=== PATIENT | female | born 1940 | race Two or more races ===

== ENCOUNTER 2019-06-04 10:40 | Inpatient (IN) | payer OTHER ==
[~2019-06-04] VITALS: Ht 149.9 cm; Wt 46.7 kg
--- NOTE | 2019-06-04 10:57 | NUR ---
PATIENT BIB C/O ASHTMA ATTACK FOR 3 DAYS. PATIENT A/O X 3. NO ACUTE DISTRESS. NO CHANGES IN LOC NOTED. WILL CONTINUE TO MONITOR ACCORDINGLY
[2019-06-04] MEDS ORDERED: IPRATROPIUM NEB FS 0.5 MG/2.5 ML AMPUL.NEB ONE (11:25)
[2019-06-04] MEDS ORDERED: ALBUTEROL FS 2.5 MG/3 ML VIAL.NEB ONE (11:25)
[2019-06-04] MEDS ORDERED: methylPREDNISolone SOD SUCC 125 MG/2ML VIAL ONE (11:26)
[2019-06-04] MEDS ORDERED: IPRATROPIUM NEB FS 0.5 MG/2.5 ML AMPUL.NEB NEB ONE (11:30)
[2019-06-04] MEDS ORDERED: ALBUTEROL FS 2.5 MG/3 ML VIAL.NEB NEB ONE (11:30)
[2019-06-04] MEDS ORDERED: methylPREDNISolone SOD SUCC 125 MG/2ML VIAL IV ONE (11:30)
[2019-06-04 11:35] LABS: BASOPHILS # (AUTO) 0.1 /CMM (0.0-0.2); BASOPHILS % (AUTO) 0.6 % (0.0-2.0); EOSINOPHILS % (AUTO) 5.4 % (0.0-6.0); HEMATOCRIT 45 % (33-45); HEMOGLOBIN 14.6 g/dL (11.5-14.8); LYMPHOCYTES # (AUTO) 1.7 /CMM (0.8-4.8); LYMPHOCYTES % (AUTO) 16.7 % (20.0-44.0); MEAN CORPUSCULAR HGB CONC 33 g/dl (31.0-36.0); MEAN CORPUSCULAR VOLUME 93 fL (82-100); MONOCYTES % (AUTO) 10.4 % (2.0-12.0); NEUTROPHILS # (AUTO) 6.6 /CMM (1.8-8.9); NEUTROPHILS % (AUTO) 66.9 % (43.0-81.0); PLATELET COUNT (AUTO) 384 /CMM (150-450); RED BLOOD CELL COUNT(AUTO) 4.82 MIL/uL (4.0-5.2); WHITE BLOOD COUNT (AUTO) 9.9 K/uL (4.3-11.0)
[2019-06-04] MEDS ORDERED: LOSA50TA39 PO (11:37)
[2019-06-04] MEDS ORDERED: HYDR-500 PO (11:37)
[2019-06-04] MEDS ORDERED: ALBU18HF2 INH (11:37)
[2019-06-04] MEDS ORDERED: ALBU2.5V38 INH (11:37)
[2019-06-04 11:42] LABS: CALCIUM, SERUM 9.4 mg/dL (8.5-10.1); CARBON DIOXIDE 27 mmol/L (21-32); CHLORIDE 102 mmol/L (98-107); CREATININE 0.5 mg/dL (0.6-1.3); GLUCOSE 97 mg/dL (74-106); SODIUM SERUM 138 mmol/L (136-145); UREA NITROGEN, BLOOD 8 mg/dL (7-18)
[2019-06-04 11:55] LABS: ALANINE AMINOTRANSFERASE 21 U/L (12-78); ALBUMIN 3.6 g/dL (3.4-5.0); ALKALINE PHOSPHATASE 101 U/L (46-116); ASPARTATE AMINOTRANSFERASE 17 U/L (15-37); B-TYPE NATRIURETIC PEPTIDE 78 PG/ML (0-125); BILIRUBIN,DIRECT 0.2 mg/dL (0.0-0.2); TOTAL PROTEIN, SERUM 7.7 g/dL (6.4-8.2)
--- NOTE | 2019-06-04 12:00 | NUR ---
CALLED NURSING SUP FOR M/S BED.
[2019-06-04] MEDS ORDERED: Z GUARD REMEDY 2 OZ OINT TP PRN (12:30)
[2019-06-04] MEDS ORDERED: MAGNESIUM HYDROXIDE 30 ML UDC PO PRN (12:30)
--- NOTE | 2019-06-04 12:43 | NUR ---
NURSING SUP GAVE [phone].
--- NOTE | 2019-06-04 12:51 | NUR ---
REPORT GIVEN TO CORI BELTRAN FOR CHRISTIANO
--- NOTE | 2019-06-04 12:51 | NUR ---
RECEIVED TELEPHONE REPORT FROM ER
--- NOTE | 2019-06-04 12:56 | NUR ---
RECEIVED PT FROM ER VIA e-voloRNEY. PT AWAKE IN BED, ALERT AND ORIENTED X 4, ON ROOM AIR, SATURATING WELL, RESPIRATIONS EVEN AND UNLABORED, NO SIGNS OF RESPIRATORY DISTRESS NOTED. PT REPORTS A HEADACHE AND BACK PAIN WHEN COUGHING. COUGH IS NON PRODUCTIVE. IV SITE ON LEFT AC G18 IS PATENT, INTACT, WITH HEP LOCK IN PLACE. HEAD TO TOE ASSESSMENT COMPLETED. WHEEZING AUSCULTATED IN BILATERAL LUNGS. SCAR NOTED ON ABDOMEN, REDNESS NOTED ON SACRAL AREA. PHOTOS TAKEN, PLACED INTO CHART, WOUND CONSULT ORDERED, WOUND CARE PLAN INITIATED. BED IN LOW POSITION, LOCKED, CALL LIGHT WITHIN REACH. PT'S CURRENT WEIGHT: 103 LBS ON ADMISSION ON BED SCALE. ALL BELONGINGS AND VALUABLE ACCOUNTED FOR.
--- NOTE | 2019-06-04 12:56 | NUR ---
PATIENT TRANSFERRED TO UNIT VIA GURNEY. PATIENT BREATHING UNLABORED. NO ACUTE DISTRESS. NO CHANGES IN LOC NOTED.
[2019-06-04 13:00] VITALS: BP 128/70
[2019-06-04] MEDS: methylPREDNISolone SOD SUCC 40 MG/ML VIAL IV SCH ×2 (13:26→21:18)
[2019-06-04] MEDS: ALBUTEROL FS 2.5 MG/0.5 ML VIAL.NEB NEB PRN ×2 (15:23→21:33)
[2019-06-04] MEDS: IPRATROPIUM NEB FS 0.5 MG/2.5 ML AMPUL.NEB NEB PRN ×2 (15:23→21:33)
[2019-06-04] MEDS: ONDANSETRON HCL/PF 4 MG/2 ML VIAL IVP PRN ×2 (15:48→16:27)
[2019-06-04] MEDS: ALPRAZOLAM 0.5 MG TABLET PO PRN (15:50)
[2019-06-04 16:00] VITALS: BP 145/78
--- NOTE | 2019-06-04 18:24 | NUR ---
MS RN CLOSING NOTE PT AWAKE IN BED, ALERT AND ORIENTED X 4, ON ROOM AIR, SATURATING WELL, RESPIRATIONS EVEN AND UNLABORED, NO SIGNS OF RESPIRATORY DISTRESS NOTED. IV SITE ON LEFT AC G18 IS PATENT, INTACT, WITH HEP LOCK IN PLACE. PROVIDED SAFETY AND COMFORT TO PT THROUGHOUT SHIFT, ALL DUE MEDS GIVEN, BED IN LOW POSITION, LOCKED, CALL LIGHT WITHIN REACH. BY BEDSIDE. WILL ENDORSE TO NOC SHIFT NURSE.
--- NOTE | 2019-06-04 19:30 | NUR ---
STRUCTURAL ENGINEERING DRAFTING OFFICER OPENING NOTES RECEIVED PATIENT FROM MORNING SHIFT, ALERT AND ORIENTED X 4. AMBULATORY, VERBALLY RESPONSIVE [place] SPEAKING AND ABLE TO FOLLOW DIRECTIONS. BREATHING REGULAR AND UNLABORED ON ROOM AIR. LEFT AC G18 IV LINE INTACT AND PATENT FLUSHING WELL WITH NO BLEEDING OR S/S OF INFECTION/INFILTRATION NOTED. NO COMPLAINTS OF PAIN/DISCOMFORT REPORTED OF THE TIME. BODY ASSESSMENT DONE, SKIN REMAINED INTACT WITH SACRAL REDNESS. ENCOURAGED TO CHANGE POSITION FROM TIME TO TIME. BED LOW AND LOCKED ON SEMI FOWLERS POSITION. CALL LIGHT IN REACH. WILL CONTINUE TO MONITOR.
[2019-06-04 20:00] VITALS: BP 147/69
[2019-06-04 22:00] VITALS: BP 147/69
[2019-06-04] MEDS: HYDROCODONE/APAP 5/325MG 1 EACH TABLET PO PRN (23:50)
--- NOTE | 2019-06-05 | NUR ---
SPECIAL EDUCATION AIDE NOTES COMPLAINED OF 7/10 GENERALIZED PAIN, NORCO 5/325 GIVEN BY MOUTH. NON-PHARMACOLOGICAL INTERVENTIONS PROVIDED. WILL CONTINUE TO MONITOR.
[2019-06-05] MEDS: TEMAZEPAM 15 MG CAPSULE PO PRN (01:05)
--- NOTE | 2019-06-05 01:10 | NUR ---
PHYSICIAN PEDIATRICIAN NOTES COMPLAINED OF INABILITY TO STAY ASLEEP, RESTORIL 15MG GIVEN BY MOUTH. NON-PHARMACOLOGICAL INTERVENTIONS PROVIDED. WILL CONTINUE TO MONITOR.
[2019-06-05] MEDS: ALBUTEROL FS 2.5 MG/0.5 ML VIAL.NEB NEB PRN ×3 (01:33→11:36)
[2019-06-05] MEDS: IPRATROPIUM NEB FS 0.5 MG/2.5 ML AMPUL.NEB NEB PRN ×3 (01:33→11:36)
[2019-06-05] MEDS: methylPREDNISolone SOD SUCC 40 MG/ML VIAL IV SCH ×3 (04:18→21:02)
--- NOTE | 2019-06-05 06:20 | NUR ---
ICT PROGRAMMER CLOSING NOTES PATIENT IN BED, ALERT AND ORIENTED X 4. VERBALLY RESPONSIVE AND ABLE TO FOLLOW DIRECTIONS. BREATHING REGULAR AND UNLABORED ON ROOM AIR WITH EPISODES OF PRODUCTIVE COUGHING. LEFT AC G18 IV LINE INTACT AND FLUSHING WELL. MAINTAINED ON CARDIAC MONITORING WITH NSR AT 78bpm. NO COMPLAINTS OF PAIN/DISCOMFORT REPORTED OF THE TIME. BED LOW AND LOCKED ON SEMI FOWLERS POSITION. CALL LIGHT IN REACH. WILL ENDORSE TO MORNING SHIFT FOR CHRISTIANO.
[2019-06-05 07:14] LABS: BASOPHILS % (AUTO) 0.1 % (0.0-2.0); HEMATOCRIT 43 % (33-45); HEMOGLOBIN 14.7 g/dL (11.5-14.8); LYMPHOCYTES # (AUTO) 1.2 /CMM (0.8-4.8); LYMPHOCYTES % (AUTO) 11.4 % (20.0-44.0); MEAN CORPUSCULAR HGB CONC 34 g/dl (31.0-36.0); MEAN CORPUSCULAR VOLUME 93 fL (82-100); MONOCYTES # (AUTO) 0.3 /CMM (0.1-1.30); MONOCYTES % (AUTO) 2.7 % (2.0-12.0); NEUTROPHILS % (AUTO) 85.8 % (43.0-81.0); PLATELET COUNT (AUTO) 399 /CMM (150-450); RED BLOOD CELL COUNT(AUTO) 4.65 MIL/uL (4.0-5.2); WHITE BLOOD COUNT (AUTO) 10.5 K/uL (4.3-11.0)
[2019-06-05 07:29] LABS: CALCIUM, SERUM 9.5 mg/dL (8.5-10.1); CREATININE 0.6 mg/dL (0.6-1.3); MAGNESIUM 2.1 mg/dL (1.8-2.4); PHOSPHORUS 4.7 mg/dL (2.5-4.9); POTASSIUM 4.4 mmol/L (3.5-5.1)
--- NOTE | 2019-06-05 07:55 | NUR ---
GROUP CONTRACT ANALYST OPENING NOTES PT A/O X4, ALBANIAN AND TURKISH SPEAKING. ON BEDSIDE. NO COMPLAIN OF SOB, WHEEZING AND CRACKLES VIA AUSCULTATION ON LUNGS BILATERALLY, ON O2 AT 2LPM VIA NASAL CANNULA, HOB ELEVATED FOR BETTER BREATHING. DENIES PAIN AND DISCOMFORT. SKIN WARM TO TOUCH AND DRY. ABD SOFT AND NON DISTENDED WITH ACTIVE BOWEL SOUNDS, WITH BRP NEEDS ASSISTANCE. IV SITE AT LEFT AC GAUGE 18 PATENT IN FLUSHING. TELE MONITOR SHOWS NSR 93.ALL CONCERNS ADDRESSED. TX NEAR NURSES STATION. WILL CONTINUE TO MONITOR CARE.
[2019-06-05 08:00] VITALS: BP 147/72
[2019-06-05 08:24] LABS: ABG BASE EXCESS 3.3 mmol/L; ABG OXYGEN SATURATION 94.7 % (92.0-98.5); ABG PH 7.432 (7.350-7.450); ABG PO2 81.1 mmHg (75.0-100.0); AaDO2 67.8 mmHg; COHb 0.7 % (0.5-1.5); MetHb 0.3 % (0.0-1.5); O2Hb 93.8 % (94.0-97.0); SITE, ABG Right Radial; VENT MODE, BG N/C 2LPM
--- NOTE | 2019-06-05 09:51 | NUR ---
RN NOTES PT SEEN BY [facility]
[2019-06-05] MEDS: ALPRAZOLAM 0.5 MG TABLET PO PRN (09:52)
[2019-06-05] MEDS: LOSARTAN POTASSIUM 50 MG TABLET PO SCH (09:52)
[2019-06-05] MEDS: ALBUTEROL FS 2.5 MG/0.5 ML VIAL.NEB NEB SCH ×4 (12:00→23:21)
[2019-06-05] MEDS: IPRATROPIUM NEB FS 0.5 MG/2.5 ML AMPUL.NEB NEB SCH ×4 (12:00→23:21)
--- NOTE | 2019-06-05 13:15 | NUR ---
RN NOTES PT SEEN BY DIETARY, TO START WITH ENSURE ENLIVE FOR NOURISHMENT BID. PT AWARE AND AGREED.
[2019-06-05 16:00] VITALS: BP 131/69
--- NOTE | 2019-06-05 17:44 | NUR ---
RN NOTES PT WENT TO RADIOLOGY FOR SINUS XRAY VIA WHEELCHAIR WITH TEST DEPARTMENT HELPER AND
[2019-06-05] MEDS: ENSURE ENLIVE 237 ML LIQUID (VANILLA) PO SCH (17:50)
--- NOTE | 2019-06-05 18:05 | NUR ---
M/S RN NOTES PT CAME BACK FROM XRAY
--- NOTE | 2019-06-05 18:34 | NUR ---
M/S RN CLOSING NOTES PT A/O X4, RESPONSIVE TO ALL STIMULI. RESPIRATION EVEN AND NON LABORED WITH NO ACUTE RESPIRATORY DISTRESS, WHEEZING STILL PRESENT, ON NEBULIZER Q4. HOB ON SUPINE POSITION, O2 NEEDED ONLY. ABDOMEN SOFT AND NON DISTENDED WITH ACTIVE BOWEL SOUNDS, NO BM TODAY, CONTINENT B&B. SKIN WARM TO TOUCH AND DRY, NO NEW OPEN SKIN BREAKDOWN. IV SITE AT LEFT AC GAUGE 18 PATENT IN FLUSHING. DENIES PAIN AND DISCOMFORT. ALL CARE ATTENDED. CALL LIGHT WITHIN REACH. ON BEDSIDE. ENDORSE PT CARE TO NEXT SHIFT.
[2019-06-05 19:30] VITALS: BP 139/65
--- NOTE | 2019-06-05 19:30 | NUR ---
MS RN NOTES PATIENT IN BED AWAKE, ALERT AND ORIENTED X 4. AT BEDSIDE. BREATHING EVEN AND UNLABORED RESPIRATIONS. DENIES ACUTE PAIN, NO ACUTE RESPIRATORY DISTRESS. WHEEZING PRESENT ON AUSCULTATION. IV ON LAC #18G SALINE LOCK. CLEAN DRY AND INTACT. NO REDNESS, NO SIGNS OF INFILTRATION. SAFETY PRECAUTION IN PLACE. BED IN LOWEST POSITION LOCKED, AND CALL LIGHT KEPT WITHIN REACH. WILL CONTINUE TO MONITOR.
[2019-06-05 20:00] VITALS: BP 139/65
[2019-06-06] MEDS: TEMAZEPAM 15 MG CAPSULE PO PRN (00:29)
--- NOTE | 2019-06-06 00:30 | NUR ---
MS RN NOTES PATIENT REQUESTED SLEEP MEDICATION. GIVEN RESTORIL PRN ON 29. WILL CONTINUE TO MONITOR.
[2019-06-06] MEDS: ALBUTEROL FS 2.5 MG/0.5 ML VIAL.NEB NEB SCH ×6 (03:30→23:28)
[2019-06-06] MEDS: IPRATROPIUM NEB FS 0.5 MG/2.5 ML AMPUL.NEB NEB SCH ×6 (03:30→23:28)
[2019-06-06] MEDS: methylPREDNISolone SOD SUCC 40 MG/ML VIAL IV SCH ×3 (04:31→20:47)
--- NOTE | 2019-06-06 06:31 | NUR ---
MS RN NOTES PATIENT ASLEEP IN BED, ALERT AND ORIENTED X 4. AT BEDSIDE. BREATHING EVEN AND UNLABORED RESPIRATIONS. DENIES ACUTE PAIN, NO ACUTE RESPIRATORY DISTRESS. WHEEZING PRESENT ON AUSCULTATION. IV RIGHT FOREARM #22G SALINE LOCK. CLEAN DRY AND INTACT. NO REDNESS, NO SIGNS OF INFILTRATION. ALL DUE MEDICATION GIVEN. SAFETY PRECAUTION IN PLACE. BED IN LOWEST POSITION LOCKED, AND CALL LIGHT KEPT WITHIN REACH. WILL ENDORSE TO ONCOMING NURSE.
[2019-06-06 08:00] VITALS: BP 144/95
[2019-06-06] MEDS: LOSARTAN POTASSIUM 50 MG TABLET PO SCH (08:52)
[2019-06-06] MEDS: ENSURE ENLIVE 237 ML LIQUID (VANILLA) PO SCH ×2 (08:52→16:05)
--- NOTE | 2019-06-06 09:06 | NUR ---
alert, oriented, and appropriate, significant other at bedside, still wheezy , on 2liters nc, sat 94%. No c/o of sob, nor dyspnea at this moment
[2019-06-06] MEDS: ACETYLCYSTEINE 10% SOLN 400 MG/4 ML VIAL NEB SCH ×3 (12:01→23:28)
[2019-06-06 16:00] VITALS: BP 148/73
--- NOTE | 2019-06-06 17:32 | NUR ---
still congested, non-productive cough noted, in no respiratory distress. influenza A and B collected.
[2019-06-06] MEDS: ACETAMINOPHEN 325 MG TABLET PO PRN (18:30)
[2019-06-06] MEDS: ALPRAZOLAM 0.5 MG TABLET PO PRN (18:36)
--- NOTE | 2019-06-06 18:45 | NUR ---
claimed " i am so nervous, asking for xanax , 0.5mg po given.
--- NOTE | 2019-06-06 19:05 | NUR ---
RN MS OPENING NOTES RECEIVED PATIENT IN BED AWAKE ALERT AND ORIENTED X4, RESPIRATIONS EVEN AND UNLABORED WITH EQUAL RISE AND FALL OF CHEST NOTED WITH NON PRODUCTIVE COUGH AT THIS TIME,AT THIS TIME DENIES ANY PAIN OR DISCOMFORT AT THIS TIME PER PT WILL ASK FOR PAIN MED WHEN NEEDED, ON 2 L VIA NC TOLERATING WELL, IV SITE TO RIGHT FA #22 SL INTACT AND PATENT, NO REDNESS, NO INFILTRATION PRESENT, ORIENTED TO STAFF AND CALL LIGHT AND KEPT WITHIN REACH, SAFETY PRECAUTIONS RENDERED, LOW BED AND LOCKED,BED ALARM FOR SAFETY ALL NEEDS ATTENDED AT THIS TIME, FLUIDS OFFERED WILL CONTINUE TO MONITOR AND ATTEND TO NEEDS.
--- NOTE | 2019-06-06 19:53 | NUR ---
rn ms notes patient refused friday reassessment of skin and photos states " i dont have anything " educated regarding benefit of skin assessment states "no common no".
[2019-06-06 19:59] VITALS: BP 138/55
[2019-06-06 20:00] VITALS: BP 135/55
[2019-06-07] MEDS: TEMAZEPAM 15 MG CAPSULE PO PRN (02:00)
--- NOTE | 2019-06-07 02:00 | NUR ---
RN MS NOTES PATIENT REQUESTED FOR SLEEP MEDICATION RESTORIL PRN RESTORIL GIVEN ORDERED, WILL CONTINUE TO MONITOR FOR EFFECTIVENESS
[2019-06-07] MEDS: ALBUTEROL FS 2.5 MG/0.5 ML VIAL.NEB NEB SCH ×7 (03:30→23:50)
[2019-06-07] MEDS: IPRATROPIUM NEB FS 0.5 MG/2.5 ML AMPUL.NEB NEB SCH ×7 (03:30→23:50)
[2019-06-07] MEDS: methylPREDNISolone SOD SUCC 40 MG/ML VIAL IV SCH ×3 (04:33→20:49)
--- NOTE | 2019-06-07 05:02 | NUR ---
RN MS NOTES PATIENT REQUESTED BREATHING TREATMENT SCHEDULED FOR 0330 AM AT THIS TIME, PATIENT WAS A SLEEP EARLIER AND DID NOT WANT TO BE WOKEN UP.
--- NOTE | 2019-06-07 06:27 | NUR ---
RN MS CLOSING NOTES PATIENT IN BED SLEEPING BUT EASILY AROUSABLE , 0500 AM BREATHING TREATMENT WAS EFFECTIVE, HAD EPISODE OF COUGH AND FEELING SOB SP02 WNL 95% ON 2 L VIA NC, ALERT AND ORIENTED X4, RESPIRATIONS EVEN AND UNLABORED WITH EQUAL RISE AND FALL OF CHEST AT THIS TIME,AT THIS TIME DENIES ANY PAIN OR DISCOMFORT, IV SITE TO RIGHT FA #22 SL INTACT AND PATENT, NO REDNESS, NO INFILTRATION PRESENT, CALL LIGHT KEPT WITHIN REACH, SAFETY PRECAUTIONS RENDERED, LOW BED AND LOCKED,BED, ALL DUE MEDICATIONS GIVEN ORDERED NO ADVERSE REACTIONS PRESENT, SLEPT WELL AFTER RESTORIL ADMINISTRATION, ALL NEEDS ATTENDED AT THIS TIME, FLUIDS OFFERED WILL CONTINUE TO MONITOR AND ATTEND TO NEEDS AND ENDORSE TO NEXT SHIFT AT THIS TIME REMAINS COMFORTABLE.
[2019-06-07] MEDS: ACETYLCYSTEINE 10% SOLN 400 MG/4 ML VIAL NEB SCH ×3 (07:39→23:50)
--- NOTE | 2019-06-07 07:44 | NUR ---
MS RN OPENING NOTES Received Patient awake and resting in bed. A/O x 4. Patient in stable condition with no acute distress. Breathing even and unlabored on 2LPM via NC. Denies pain. 22g PIV on RFA clean, intact, patent and flushing well. Safety precautions in place. Bed locked and set to lowest position with side rails x 2 up. at bedside. All needs rendered at this time. Call light within reach. Will continue to monitor.
[2019-06-07 08:00] VITALS: BP 153/88
[2019-06-07] MEDS: ENSURE ENLIVE 237 ML LIQUID (VANILLA) PO SCH ×2 (08:22→16:56)
[2019-06-07] MEDS: LOSARTAN POTASSIUM 50 MG TABLET PO SCH (08:23)
[2019-06-07] MEDS: ALPRAZOLAM 0.5 MG TABLET PO PRN (14:27)
[2019-06-07 16:00] VITALS: BP 153/84
--- NOTE | 2019-06-07 18:49 | NUR ---
MS RN CLOSING NOTES Patient awake and resting in bed. A/O x 4. Patient in stable condition with no acute distress. Breathing even and unlabored on room air with no respiratory distress. Denies pain. 22g PIV on RFA clean, intact, patent and flushing well. Safety precautions in place. Bed locked and set to lowest position with side rails x 2 up. at bedside. All needs rendered at this time. Call light within reach. Will endorse plan of care to oncoming shift.
[2019-06-07 20:00] VITALS: BP_SYST 153; BP_SYST 162; BP_DIAS 76; BP_DIAS 91
--- NOTE | 2019-06-07 20:30 | NUR ---
rn ms notes patient complaint ensure makes her go to the bathroom x2 times and have stomach cramps and aches, requesting for imodium. dr moses made aware, new order for imodium noted and carried out.
[2019-06-07] MEDS ORDERED: LOPERAMIDE HCL (2 MG CAP) 2 MG CAPSULE PO PRN (21:00)
[2019-06-07 21:24] VITALS: BP 163/76
[2019-06-08] MEDS: TEMAZEPAM 15 MG CAPSULE PO PRN (01:09)
--- NOTE | 2019-06-08 01:09 | NUR ---
rn ms notes patient requested for sleep aide, restoril prn given as ordered, will continue to monitor for effectiveness.
[2019-06-08] MEDS: IPRATROPIUM NEB FS 0.5 MG/2.5 ML AMPUL.NEB NEB SCH ×6 (03:30→23:02)
[2019-06-08] MEDS: ALBUTEROL FS 2.5 MG/0.5 ML VIAL.NEB NEB SCH ×6 (03:30→23:02)
[2019-06-08] MEDS: methylPREDNISolone SOD SUCC 40 MG/ML VIAL IV SCH ×3 (05:00→20:46)
[2019-06-08 08:00] VITALS: BP 185/84
--- NOTE | 2019-06-08 08:20 | NUR ---
ms rn received on bed, awake,alert,oriented x 4, not in any form of distress, respirations even and unlabored,no sob noted, lung have wheezes bilaterally, denies pain at this time,all needs attended.
[2019-06-08] MEDS: ACETYLCYSTEINE 10% SOLN 400 MG/4 ML VIAL NEB SCH ×3 (08:31→23:03)
--- NOTE | 2019-06-08 08:50 | NUR ---
ms rn was seen by dr. regino dumas/ orders made and carried out.
[2019-06-08] MEDS: ENSURE ENLIVE 237 ML LIQUID (VANILLA) PO SCH ×2 (09:00→17:00)
--- NOTE | 2019-06-08 09:30 | NUR ---
ms roberts breakfast served,due meds given,tolerated well.
[2019-06-08] MEDS: BENZONATATE 100 MG CAPSULE PO PRN ×2 (09:54→15:28)
[2019-06-08] MEDS: LOSARTAN POTASSIUM 50 MG TABLET PO SCH (09:55)
--- NOTE | 2019-06-08 14:00 | NUR ---
ms rn patient complain of pain in her iv site, new iv heplock inserted at left forearm.right iv heplock removed.
[2019-06-08] MEDS: ALPRAZOLAM 0.5 MG TABLET PO PRN (15:04)
[2019-06-08] MEDS: ACETAMINOPHEN 325 MG TABLET PO PRN (15:07)
[2019-06-08 16:03] VITALS: BP 157/82
--- NOTE | 2019-06-08 16:45 | NUR ---
ms rn on bed, no distress noted.
--- NOTE | 2019-06-08 19:39 | NUR ---
MS/RN OPENING NOTES RECEIVED PATIENT IN BED, AWAKE, ABLE TO VERBALIZE NEEDS, PATIENT REPORTED THAT SHE FEELS HOT AND WOULD LIKE TO ROOM COOLER, AIR CONDITION ON WITH ELECTRIC FAN AND REPORTED FEEL BETTER NO COUGH OBSERVE. SKIN WARM TO TOUCH, ON ROOM AIR, FAMILY AT BEDSIDE, ABLE TO TURN AND REPOSITION, PER AM RN TO CONTINUE WITH CARE AND WITH NEEDED MEDICATION FOR COUGH PER MD. BED LOCKED CALL LIGHTS WITHIN REACH. WILL MONITOR.
[2019-06-08 20:00] VITALS: BP 137/71
[2019-06-08] MEDS: HYDROCODONE/APAP 5/325MG 1 EACH TABLET PO PRN (20:55)
[2019-06-09] MEDS: TEMAZEPAM 15 MG CAPSULE PO PRN (01:42)
--- NOTE | 2019-06-09 01:44 | NUR ---
MS/RN NOTES PATIENT REQUESTED FOR SLEEPIN MEDICATION, RESTORIL GIVEN TO MONITOR FOR SLEEP.
[2019-06-09] MEDS: ALBUTEROL FS 2.5 MG/0.5 ML VIAL.NEB NEB SCH ×3 (03:12→11:21)
[2019-06-09] MEDS: IPRATROPIUM NEB FS 0.5 MG/2.5 ML AMPUL.NEB NEB SCH ×3 (03:12→11:21)
[2019-06-09] MEDS: methylPREDNISolone SOD SUCC 40 MG/ML VIAL IV SCH ×2 (04:54→12:51)
[2019-06-09 06:38] LABS: BASOPHILS % (AUTO) 0.1 % (0.0-2.0); HEMATOCRIT 40 % (33-45); HEMOGLOBIN 13.4 g/dL (11.5-14.8); LYMPHOCYTES % (AUTO) 5.3 % (20.0-44.0); MEAN CORPUSCULAR HGB CONC 33 g/dl (31.0-36.0); MEAN CORPUSCULAR VOLUME 92 fL (82-100); MONOCYTES # (AUTO) 1.7 /CMM (0.1-1.30); MONOCYTES % (AUTO) 8.6 % (2.0-12.0); NEUTROPHILS # (AUTO) 16.6 /CMM (1.8-8.9); PLATELET COUNT (AUTO) 368 /CMM (150-450); RED BLOOD CELL COUNT(AUTO) 4.38 MIL/uL (4.0-5.2); WHITE BLOOD COUNT (AUTO) 19.3 K/uL (4.3-11.0)
--- NOTE | 2019-06-09 06:54 | NUR ---
ms/rn closing notes patient in bed, asleep, resting comfortably in bed, respirations even and unlabored, skin warm to touch, attended to all needs. bed locked call lights within reach, on breathin treatment monitoring for any couging and pain. pain reliefved by kendra. to endorse to am rn for merlin.
[2019-06-09 07:06] LABS: CALCIUM, SERUM 8.4 mg/dL (8.5-10.1); CREATININE 0.6 mg/dL (0.6-1.3); POTASSIUM 4.1 mmol/L (3.5-5.1)
--- NOTE | 2019-06-09 07:37 | NUR ---
MS/RN Opening note Patient received resting in bed, A/O x4, showing no signs of acute distress or SOB at this time. Family is at the bedside. IV line in the LFA #22 is clean and patent. Bed is in lowest position, side rails x2 in upright position, call light is within reach and patient is aware of how to call for assistance when needed. Will continue with plan of care.
[2019-06-09 08:00] VITALS: BP 158/99
[2019-06-09] MEDS ORDERED: ALBU2.5V13 NEB (08:07)
[2019-06-09] MEDS ORDERED: IPRA0.2S9 NEB (08:07)
[2019-06-09] MEDS ORDERED: PRED20TA PO (08:07)
[2019-06-09] MEDS ORDERED: BENZ-13 PO (08:07)
[2019-06-09] MEDS: ACETYLCYSTEINE 10% SOLN 400 MG/4 ML VIAL NEB SCH (08:14)
[2019-06-09 08:37] VITALS: BP 158/99
[2019-06-09] MEDS: LOSARTAN POTASSIUM 50 MG TABLET PO SCH (08:37)
[2019-06-09] MEDS: ENSURE ENLIVE 237 ML LIQUID (VANILLA) PO SCH (08:39)
[2019-06-09] MEDS: BENZONATATE 100 MG CAPSULE PO PRN (12:51)
[2019-06-09] MEDS: ALPRAZOLAM 0.5 MG TABLET PO PRN (12:51)
--- NOTE | 2019-06-09 13:00 | NUR ---
MS/director data note Patient is medically stable for discharge, A/O x4, showing no signs of acute distress or SOB, saturating at 94% on RA. Vital signs WNL. DC instructions provided, patient verbalized understanding. IV removed, ID band removed. Patient refused skin assessment. Patient has all belongings with them. Patient kept clean, dry and comfortable throughout shift. MD is aware of discharge. Patient left unit with family via private car to home.
== END 2019-06-09 13:45 | disposition home or self-care (01) | DRG 202 ==
LOC: ER 10:50 → MED 12:48 → TELE 23:12 → MED 06-05 10:20
PROVIDERS: ADMIT Nurse Practitioner Acute Care; ATTEND Family Medicine
DX: J45.901 Unspecified asthma with (acute) exacerbation (principal); E44.1 Mild protein-calorie malnutrition; R64 Cachexia; F41.9 Anxiety disorder, unspecified; I10 Essential (primary) hypertension; G47.00 Insomnia, unspecified; Z85.028 Personal history of other malignant neoplasm of stomach; Z90.3 Acquired absence of stomach [part of]; R07.81 Pleurodynia; Z68.20 Body mass index [BMI] 20.0-20.9, adult; E88.09 Other disorders of plasma-protein metabolism, not elsewhere classified
CPT/HCPCS: 36415; 36600; 70220-TC; 71045-TC; 80048-TC; 80061-TC; 80076-TC; 82803-TC; 83735-TC; 83880; 84100-TC; 84484-TC; 85025-TC; 87081-TC; 94799-TC; 97116-TC; 97530-TC; G0378; J2405; J2920; J2930

== ENCOUNTER 2024-08-21 13:54 | Emergency (ER) | payer BC, MEDICAID ==
[~2024-08-21] VITALS: Ht 149.9 cm; Wt 37.2 kg
[~2024-08-21 13:54] MED LIST: ALBU18HF2 INH; ALBU2.5V13 NEB; ALBU2.5V38 INH; BENZ-13 PO; HYDR-500 PO; IPRA0.2S9 NEB; LOSA50TA39 PO; PRED20TA PO
[2024-08-21] MEDS ORDERED: ONDANSETRON HCL/PF 4 MG/2 ML VIAL ONE (14:25)
[2024-08-21] MEDS ORDERED: hydrALAZINE HCL IV 20 MG VIAL ONE (14:33)
[2024-08-21 14:34] LABS: BASOPHILS % (AUTO) 0.4 % (0.0-2.0); EOSINOPHILS # (AUTO) 0.1 K/uL (0.0-0.7); EOSINOPHILS % (AUTO) 1.1 % (0.0-6.0); HEMATOCRIT 32 % (33-45); HEMOGLOBIN 9.7 g/dL (11.5-14.8); LYMPHOCYTES # (AUTO) 0.9 K/uL (0.8-4.8); LYMPHOCYTES % (AUTO) 16.7 % (20.0-44.0); MEAN CORPUSCULAR HEMOGLOBIN 23 PG (26.0-33.0); MEAN CORPUSCULAR HGB CONC 31 g/dl (31.0-36.0); MEAN CORPUSCULAR VOLUME 74 fL (82-100); MONOCYTES # (AUTO) 0.4 K/uL (0.1-1.30); MONOCYTES % (AUTO) 7.3 % (2.0-12.0); NEUTROPHILS % (AUTO) 74.5 % (43.0-81.0); PLATELET COUNT (AUTO) 517 K/uL (150-450); RED BLOOD CELL COUNT(AUTO) 4.28 MIL/uL (4.0-5.2); RED CELL DISTRIBUTION WIDTH 19.1 % (11.5-15.0); WHITE BLOOD COUNT (AUTO) 5.3 K/uL (4.3-11.0)
[2024-08-21] MEDS: hydrALAZINE HCL IV 20 MG VIAL IV ONE (14:37)
[2024-08-21] MEDS: IV NS 0.9% 1,000 ML BAG IV ONE (14:37)
[2024-08-21] MEDS: ONDANSETRON HCL/PF 4 MG/2 ML VIAL IVP ONE (14:37)
[2024-08-21 14:44] LABS: CALCIUM, SERUM 8.1 mg/dL (8.5-10.1); CARBON DIOXIDE 29 mmol/L (21-32); CHLORIDE 105 mmol/L (98-107); CREATININE 0.5 mg/dL (0.6-1.3); GLUCOSE 101 mg/dL (74-106); POTASSIUM 3.7 mmol/L (3.5-5.1); SODIUM SERUM 138 mmol/L (136-145); UREA NITROGEN, BLOOD 12 mg/dL (7-18)
[2024-08-21] MEDS ORDERED: LORAZEPAM INJ 2 MG/ML VIAL ONE (14:44)
[2024-08-21] MEDS ORDERED: hydrALAZINE HCL IV 20 MG VIAL IV ONE ×2 (14:45→15:00)
[2024-08-21 14:52] LABS: ALANINE AMINOTRANSFERASE 23 U/L (12-78); ALBUMIN 3.6 g/dL (3.4-5.0); ALKALINE PHOSPHATASE 89 U/L (46-116); ASPARTATE AMINOTRANSFERASE 22 U/L (15-37); BILIRUBIN,DIRECT 0.2 mg/dL (0.0-0.2); BILIRUBIN,TOTAL 1.1 mg/dL (0.2-1.0); LIPASE 32 U/L (16-77); TOTAL PROTEIN, SERUM 7.4 g/dL (6.4-8.2)
[2024-08-21] MEDS: LORAZEPAM INJ 2 MG/ML VIAL IV ONE (14:53)
[2024-08-21 15:21] LABS: ANISOCYTOSIS 2+; OVALOCYTES 1+
[2024-08-21] MEDS ORDERED: ONDA4TAB11 PO (17:41)
[2024-08-21] MEDS ORDERED: LORA-258 PO (17:41)
[2024-08-21 18:13] VITALS: BP 138/54; TEMP 97.3; O2SAT 99
== END 2024-08-21 18:13 | disposition home or self-care (01) ==
LOC: ER 14:26
DX: F41.0 Panic disorder [episodic paroxysmal anxiety] (principal); R07.89 Other chest pain; R11.2 Nausea with vomiting, unspecified; R20.0 Anesthesia of skin; R42 Dizziness and giddiness; R51.9 Headache, unspecified; I10 Essential (primary) hypertension; J45.909 Unspecified asthma, uncomplicated; R06.03 Acute respiratory distress; Z79.52 Long term (current) use of systemic steroids; Z79.899 Other long term (current) drug therapy; Z85.028 Personal history of other malignant neoplasm of stomach
CPT/HCPCS: 99285; 96374; 70450; 96375; 71045 ×2; 96361; 93005; 85025; 80048; 83690; 80076; 36415; 84484 ×2; 82962; J2060; J0360; J2405; J7030

== ENCOUNTER 2025-01-02 22:16 | Inpatient (IN) | payer BC, MEDICAID ==
[~2025-01-02] VITALS: Ht 152.4 cm; Wt 35.4 kg
[~2025-01-02 22:16] MED LIST changes: +LORA-258 PO; +ONDA4TAB11 PO
[2025-01-02 23:33] LABS: PLATELET COUNT (AUTO) 317 K/uL (150-450); RED BLOOD CELL COUNT(AUTO) 3.51 MIL/uL (4.0-5.2); RED CELL DISTRIBUTION WIDTH 18.7 % (11.5-15.0); WHITE BLOOD COUNT (AUTO) 4.9 K/uL (4.3-11.0)
[2025-01-02 23:52] LABS: ASPARTATE AMINOTRANSFERASE 26.0 U/L (15-37); CALCIUM, SERUM 8.0 mg/dL (8.5-10.1); CREATININE 0.4 mg/dL (0.6-1.3); NT-PRO BNP 449.0 pg/mL (0-125); SODIUM SERUM 137.0 mmol/L (136-145); TOTAL PROTEIN, SERUM 6.0 g/dL (6.4-8.2); UREA NITROGEN, BLOOD 21.0 mg/dL (7-18)
[2025-01-03] VITALS (11 sets, daily range): BP systolic 114–146; BP diastolic 40–53; TEMP 97.5–98.2; O2SAT 96–98
[2025-01-03] MEDS: IV NS 0.9% 1,000 ML IV ONE (00:25)
[2025-01-03 01:24] LABS: APPEARANCE,URINE CLEAR (CLEAR); BLOOD, URINE NEGATIVE Ery/uL (NEGATIVE); LEUKOCYTE ESTERASE ,URINE NEGATIVE (NEGATIVE); NITRITE, URINE NEGATIVE (NEGATIVE); UGLUCOSE NEGATIVE (NEGATIVE)
[2025-01-03 01:27] LABS: ADD URINE CULTURE NO; SQUAMOUS EPITHELIAL CELL,UR Few /HPF (None Seen)
[2025-01-03] MEDS ORDERED: MAGNESIUM HYDROXIDE 30 ML UDC PO PRN (02:30)
[2025-01-03] MEDS ORDERED: MAG HYDROX/AL HYDROX/SIMETH 30 ML UDC PO PRN (02:30)
[2025-01-03 07:36] LABS: CALCIUM, SERUM 7.2 mg/dL (8.5-10.1); CREATININE 0.3 mg/dL (0.6-1.3); PHOSPHORUS 3.1 mg/dL (2.5-4.9); SODIUM SERUM 138.0 mmol/L (136-145); UREA NITROGEN, BLOOD 15.0 mg/dL (7-18)
[2025-01-03] MEDS: PANTOPRAZOLE 40 MG TABLET.DR PO SCH (08:28)
[2025-01-03 08:48] LABS: PLATELET COUNT (AUTO) 292 K/uL (150-450); RED BLOOD CELL COUNT(AUTO) 3.21 MIL/uL (4.0-5.2); RED CELL DISTRIBUTION WIDTH 18.6 % (11.5-15.0); WHITE BLOOD COUNT (AUTO) 4.4 K/uL (4.3-11.0)
[2025-01-03 10:24] LABS: LYMPHOCYTES % (MANUAL) 15 % (16-48); MONOCYTES % (MANUAL) 11 % (0-11.0); NEUTROPHILS % (MANUAL) 74 (42-76); PLATELET ESTIMATE ADEQUATE
[2025-01-03] MEDS: MAGNESIUM OXIDE 400 MG TABLET PO ONE (10:36)
[2025-01-03] MEDS: LORAZEPAM 0.5 MG TABLET PO ONE (11:39)
[2025-01-03] MEDS ORDERED: ALBUTEROL FS 2.5 MG/3 ML VIAL.NEB NEB PRN (12:00)
[2025-01-03 12:53] LABS: IRON, SERUM 18 ug/dl (50-175)
[2025-01-03] MEDS: ONDANSETRON HCL/PF 4 MG/2 ML VIAL IVP PRN (20:08)
[2025-01-04] VITALS: BP 143/55; TEMP 109; TEMP 97.9; O2SAT 97; O2SAT 98
[2025-01-04 03:04] LABS: OCCULT BLOOD STOOL NEGATIVE (NEGATIVE)
[2025-01-04 04:00] VITALS: BP 135/61; TEMP 97.7; O2SAT 98
[2025-01-04 07:45] LABS: PLATELET COUNT (AUTO) 306 K/uL (150-450); RED BLOOD CELL COUNT(AUTO) 4.34 MIL/uL (4.0-5.2); RED CELL DISTRIBUTION WIDTH 21.7 % (11.5-15.0); WHITE BLOOD COUNT (AUTO) 3.5 K/uL (4.3-11.0)
[2025-01-04 08:00] VITALS: BP 150/58; TEMP 97.7; O2SAT 99
[2025-01-04 08:32] LABS: CALCIUM, SERUM 8.0 mg/dL (8.5-10.1); CREATININE 0.4 mg/dL (0.6-1.3); PHOSPHORUS 3.0 mg/dL (2.5-4.9); SODIUM SERUM 138.0 mmol/L (136-145); UREA NITROGEN, BLOOD 10.0 mg/dL (7-18)
[2025-01-04 10:15] LABS: LYMPHOCYTES % (MANUAL) 27 % (16-48); MONOCYTES % (MANUAL) 16 % (0-11.0); NEUTROPHILS % (MANUAL) 57 (42-76); PLATELET ESTIMATE ADEQUATE
[2025-01-04 12:00] VITALS: BP 129/49; TEMP 97.7; O2SAT 96
[2025-01-04] MEDS: ACETAMINOPHEN 325 MG TABLET PO PRN (13:49)
[2025-01-04] MEDS ORDERED: ALBU18HF2 IH (14:37)
[2025-01-04] MEDS ORDERED: NAPR-1164 PO (14:37)
[2025-01-04] MEDS ORDERED: ALPR0.255 PO (14:37)
[2025-01-04] MEDS: SOD FERRIC GLUC 125 MG in IV NS 0.9% 100 ML IV SCH (15:41)
[2025-01-04 16:00] VITALS: BP 155/53; TEMP 97.7; O2SAT 97
[2025-01-04 20:00] VITALS: BP 162/52; TEMP 97.7; O2SAT 96
[2025-01-04] MEDS: ALPRAZOLAM 0.25 MG TABLET PO PRN (21:18)
[2025-01-05] VITALS: BP 136/58; TEMP 98.2; O2SAT 94
[2025-01-05 04:00] VITALS: BP 136/49; TEMP 97.5; O2SAT 97
[2025-01-05 06:58] LABS: PLATELET COUNT (AUTO) 284 K/uL (150-450); RED BLOOD CELL COUNT(AUTO) 4.17 MIL/uL (4.0-5.2); RED CELL DISTRIBUTION WIDTH 22.1 % (11.5-15.0); WHITE BLOOD COUNT (AUTO) 3.0 K/uL (4.3-11.0)
[2025-01-05 07:54] LABS: CALCIUM, SERUM 7.9 mg/dL (8.5-10.1); CREATININE 0.5 mg/dL (0.6-1.3); SODIUM SERUM 142.0 mmol/L (136-145); UREA NITROGEN, BLOOD 6.0 mg/dL (7-18)
[2025-01-05 08:00] VITALS: BP 142/75; TEMP 97.5; O2SAT 97
[2025-01-05 08:23] LABS: PHOSPHORUS 3.3 mg/dL (2.5-4.9)
[2025-01-05 10:57] LABS: LYMPHOCYTES % (MANUAL) 34 % (16-48); MONOCYTES % (MANUAL) 23 % (0-11.0); NEUTROPHILS % (MANUAL) 43 (42-76)
[2025-01-05 10:58] LABS: PLATELET ESTIMATE ADEQUATE
[2025-01-05 12:00] VITALS: BP 139/54; TEMP 97.3; O2SAT 97
[2025-01-05 16:00] VITALS: BP 173/46; TEMP 97.7; O2SAT 96
[2025-01-05 20:00] VITALS: BP 157/61; TEMP 96.8; O2SAT 97
[2025-01-06] VITALS: BP 133/59; TEMP 97.2; O2SAT 95
[2025-01-06 04:02] VITALS: BP 119/58; TEMP 98.2; O2SAT 96
[2025-01-06 07:37] LABS: PLATELET COUNT (AUTO) 285 K/uL (150-450); RED BLOOD CELL COUNT(AUTO) 4.14 MIL/uL (4.0-5.2); RED CELL DISTRIBUTION WIDTH 22.6 % (11.5-15.0); WHITE BLOOD COUNT (AUTO) 4.4 K/uL (4.3-11.0)
[2025-01-06 07:57] LABS: CALCIUM, SERUM 7.8 mg/dL (8.5-10.1); CREATININE 0.3 mg/dL (0.6-1.3); PHOSPHORUS 2.5 mg/dL (2.5-4.9); SODIUM SERUM 139.0 mmol/L (136-145); UREA NITROGEN, BLOOD 6.0 mg/dL (7-18)
[2025-01-06 08:00] VITALS: BP 138/73; TEMP 97.3; O2SAT 95
[2025-01-06 11:30] VITALS: BP 181/112; TEMP 97.9; O2SAT 98
[2025-01-06 12:00] VITALS: BP 181/112; TEMP 97.9; O2SAT 95
[2025-01-06 16:00] VITALS: BP 157/57; TEMP 98.4; O2SAT 99
== END 2025-01-06 19:25 | disposition home or self-care (01) | DRG 179 ==
LOC: ER 22:22 → TELE1 01-03 01:49
PROVIDERS: ATTEND Nurse Practitioner Acute Care
PROC: 30233N1 Transfusion of Nonautologous Red Blood Cells into Peripheral Vein, Percutaneous Approach (ICD-10-PCS; principal; 2025-01-03)
DX: U07.1 COVID-19 (principal); I10 Essential (primary) hypertension; J45.909 Unspecified asthma, uncomplicated; Z85.028 Personal history of other malignant neoplasm of stomach; Z90.3 Acquired absence of stomach [part of]; F41.9 Anxiety disorder, unspecified; I25.10 Atherosclerotic heart disease of native coronary artery without angina pectoris; R53.1 Weakness; D50.9 Iron deficiency anemia, unspecified
CPT/HCPCS: 36415; 71045-TC; 80048-TC; 80053-TC; 81001; 82272-TC; 82728-TC; 83540-TC; 83735-TC; 83880; 84100-TC; 84484-TC; 85025-TC; 85027-TC; 86850-TC; 87040-TC; A4223; G0378; J2405; J2916; J3490; J7030; J7050; P9016